=== PATIENT | female | born 1980 | race Caucasian/White ===

== ENCOUNTER → 2017-02-27 | Outpatient (CLI) | payer OTHER ==
--- NOTE | 2017-02-28 09:49 | MM ---
Reason for exam: screening (asymptomatic). Baseline mammogram. Physical Findings: Nurse did not find any significant physical abnormalities on exam. MG Screening Mammo w CAD Bilateral CC and MLO view(s) were taken. The breast tissue is heterogeneously dense. This may lower the sensitivity of mammography. There is no discrete abnormality. These results were verbally communicated with the patient and result sheet given to the patient on 02/27/17. ASSESSMENT: Negative, BI-RAD 1 RECOMMENDATION: Routine screening mammogram of both breasts at age 38.
== END | disposition home or self-care (01) ==
LOC: RADMAMWWP 15:16
PROVIDERS: ATTEND Family Medicine
DX: Z12.31 Encounter for screening mammogram for malignant neoplasm of breast (principal)

== ENCOUNTER → 2019-09-16 | Outpatient (CLI) | payer BC, OTHER ==
--- NOTE | 2019-09-18 13:18 | MM ---
Reason for exam: screening (asymptomatic). Last mammogram was performed 2 years and 7 months ago. Physical Findings: A clinical breast exam by your physician is recommended on an annual basis and results should be correlated with mammographic findings. MG Screening Mammo w CAD Bilateral CC and MLO view(s) were taken. Prior study comparison: February 27, 2017, bilateral MG screening mammo w CAD. The breast tissue is heterogeneously dense. This may lower the sensitivity of mammography. No significant changes when compared with prior studies. ASSESSMENT: Negative, BI-RAD 1 RECOMMENDATION: Routine screening mammogram of both breasts in 1 year.
== END | disposition home or self-care (01) ==
LOC: RADMAMWWP 15:25
PROVIDERS: ATTEND Family Medicine
DX: Z12.31 Encounter for screening mammogram for malignant neoplasm of breast (principal)
CPT/HCPCS: 77067

== ENCOUNTER → 2019-09-22 | Outpatient (CLI) | payer BC, OTHER ==
--- NOTE | 2019-09-22 14:21 | CT ---
EXAMINATION TYPE: CT abdomen pelvis w con DATE OF EXAM: 09/22/2019 HISTORY: Left lower quadrant abdominal pain, pelvic pain and constipation. CT DLP: 850.6mGycm Automated Exposure Control for Dose Reduction was Utilized. CONTRAST: CT scan of the abdomen and pelvis is performed with IV Contrast, patient injected with 100ml mL of Is ovue 300. COMPARISON: None. FINDINGS: LUNG BASES: No significant abnormality is appreciated. LIVER/GB: There is focal hypoattenuation near the fissure for the falciform ligament, a typical locat ion for focal fatty infiltration. No intrahepatic biliary ductal dilatation or cholelithiasis. Questi onable very trace pericholecystic fluid on series 7 image 32. This also could represent fat situated between the gallbladder and liver. PANCREAS: No significant abnormality is seen. No main pancreatic ductal dilatation. SPLEEN: Small splenule anterior to the [place] spleen. ADRENALS: No significant abnormality is seen. KIDNEYS: No significant abnormality is seen. No hydronephrosis. BOWEL: There are a few small diverticula are seen of the sigmoid colon without pericolonic fat strand ing. No dilated large or small bowel. Oral contrast does not progress into the colon, limiting evalua tion of the colon. The appendix is air-filled, low-lying within the central pelvis and retrocecal see n just above the urinary bladder. UTERUS/ADNEXA: Follicular and/or cystic changes of the left ovary measuring 2.0 cm. Further evaluatio n with pelvic ultrasound is recommended in this patient with left-sided abdominal pain. LYMPH NODES: No greater than 1cm abdominal or pelvic lymph nodes are appreciated. OSSEOUS STRUCTURES: Minimal multilevel degenerative disc disease. IMPRESSION: 1. Follicular and/or cystic change of the left ovary. In this patient with left lower quadrant pain p elvic ultrasound is recommended for further evaluation. 2. Trace pericholecystic fluid is questioned. Gallbladder ultrasound is recommended. 3. There a few small sigmoid diverticula without evidence of acute diverticulitis. 4. Incidentally the appendix is low-lying and centrally located in the pelvis just above the urinary bladder. No CT evidence of acute appendicitis.
== END | disposition home or self-care (01) ==
LOC: RADCTMAIN 09-14 11:06
PROVIDERS: ATTEND Internal Medicine Gastroenterology
DX: K57.30 Diverticulosis of large intestine without perforation or abscess without bleeding (principal)
CPT/HCPCS: 74177; Q9967

== ENCOUNTER → 2019-12-04 | Outpatient (CLI) | payer BC, OTHER | END | disposition home or self-care (01) | LOC: LABWHC1 10:39 | PROVIDERS: ATTEND Internal Medicine Gastroenterology | DX: Z11.59 Encounter for screening for other viral diseases (principal) | CPT/HCPCS: 87635 ==

== ENCOUNTER 2019-12-09 07:33 | Day surgery (SDC) | payer BC, OTHER ==
[2019-12-08 09:56] VITALS: BMI 28.3
[2019-12-09] MEDS ORDERED: LACTATED RINGERS 1,000 ML IV SCH (07:41)
[2019-12-09 07:48] VITALS: TEMP 97.5
[2019-12-09] MEDS ORDERED: LACTATED RINGERS 1,000 ML IV ONE (07:48)
[2019-12-09] MEDS ORDERED: LIDOCAINE 1% (10MG/ML) FOR IV START INTRADERMA ONE (07:49)
[2019-12-09] MEDS ORDERED: PROPOFOL 10 MG/ML 20 ML VIAL IV ONE (08:27)
--- NOTE | 2019-12-09 08:41 | P.PCN ---
Date of Procedure: 12/09/19 Procedure(s) Performed: BRIEF HISTORY: Patient is a 39-year-old pleasant female scheduled for an elective colonoscopy as a part of value should of lower abdominal pain and chronic constipation of several months duration. PROCEDURE PERFORMED: Colonoscopy. PREOPERATIVE DIAGNOSIS: Abdominal pain and chronic constipation. IV sedation per Anesthesia. PROCEDURE: After informed consent was obtained, the patient, was brought into the endoscopy unit. IV sedation was administered by Anesthesia under continuous monitoring. Digital rectal examination was normal. Initially the Olympus CF-160 flexible video colonoscope was then inserted in the rectum, gradually advanced into the cecum without any difficulty. Careful examination was performed as the scope was gradually being withdrawn. Ileocecal valve and the appendiceal orifice were visualized and appeared normal. Prep was excellent. Mucosa of the cecum, ascending colon, transverse colon, descending colon, sigmoid colon, and rectum appeared normal. Retroflexion was performed in the rectum and no lesions were seen. The patient tolerated the procedure well. IMPRESSION: Normal-appearing colon from rectum to cecum with no evidence of colorectal neoplasia. RECOMMENDATIONS: Findings of this examination were discussed with the patient as well as a family. She was advised to start fiber supplements a regular basis and osmotic laxatives as needed. She'll be seen in office in 3-4 weeks.
[2019-12-09] MEDS ORDERED: IV FLUID CONTINUATION 1,000 ML IV ONE (08:47)
[2019-12-09 08:50] VITALS: RESP 16
[2019-12-09 09:04] VITALS: BP 136/88; PULSE 97
== END 2019-12-09 09:25 | disposition home or self-care (01) ==
LOC: ORWHC2ENDO 07:33
PROVIDERS: ATTEND Internal Medicine Gastroenterology
DX: K59.09 Other constipation (principal); Z79.899 Other long term (current) drug therapy
CPT/HCPCS: 45378; J2704

== ENCOUNTER → 2020-12-16 | Outpatient (CLI) | payer BC, OTHER ==
--- NOTE | 2020-12-20 09:15 | MM ---
Reason for exam: screening (asymptomatic). Last mammogram was performed 1 year and 3 months ago. Physical Findings: A clinical breast exam by your physician is recommended on an annual basis and results should be correlated with mammographic findings. MG Screening Mammo w CAD Bilateral CC and MLO view(s) were taken. Prior study comparison: September 16, 2019, bilateral MG screening mammo w CAD. February 27, 2017, bilateral MG screening mammo w CAD. The breast tissue is heterogeneously dense. This may lower the sensitivity of mammography. No significant changes when compared with prior studies. ASSESSMENT: Negative, BI-RAD 1 RECOMMENDATION: Routine screening mammogram of both breasts in 1 year. Patient should continue monthly self breast exams. A negative report should not preclude additional follow up of suspicious palpable abnormalities.
== END | disposition home or self-care (01) ==
LOC: RADMAMWWP 15:45
PROVIDERS: ATTEND Family Medicine
DX: Z12.31 Encounter for screening mammogram for malignant neoplasm of breast (principal)
CPT/HCPCS: 77067

== ENCOUNTER → 2022-02-14 | Outpatient (CLI) | payer OTHER ==
--- NOTE | 2022-02-15 18:14 | MM ---
Reason for Exam: Screening (asymptomatic). Last mammogram was performed 1 year(s) and 2 month(s) ago. Patient History: Menarche at age 10. First Full-Term at age 23. Hysterectomy at age 33. Risk Values: Ninfa 5 year model risk: 0.8%. NCI Lifetime model risk: 10.8%. Prior Study Comparison: 02/27/2017 Bilateral Screening Mammogram, [facility]. 09/16/2019 Bilateral Screening Mammogram, [facility]. 12/16/2020 Bilateral Screening Mammogram, [facility]. Tissue Density: There are scattered fibroglandular densities. Findings: Analyzed By CAD. There is no suspicious group of microcalcifications or new suspicious mass in either breast. Overall Assessment: Negative, BI-RAD 1 Management: Screening Mammogram of both breasts in 1 year. 1. Patient should continue monthly self breast exams. 2. A clinical breast exam by your physician is recommended on an annual basis. 3. This exam should not preclude additional follow-up of suspicious palpable abnormalities. Electronically signed and approved by: Vernon Stewart M.D. Radiologist
== END | disposition home or self-care (01) ==
LOC: RADMAMWWP 15:54
PROVIDERS: ATTEND Family Medicine
DX: Z12.31 Encounter for screening mammogram for malignant neoplasm of breast (principal)
CPT/HCPCS: 77067

== ENCOUNTER → 2023-02-15 | Outpatient (CLI) | payer SELFPAY ==
--- NOTE | 2023-02-18 16:08 | MM ---
Reason for Exam: Screening (asymptomatic). Last screening mammogram was performed 12 month(s) ago. Patient History: Menarche at age 10. First Full-Term at age 23. Hysterectomy at age 33. Risk Values: Ninfa 5 year model risk: 0.9%. NCI Lifetime model risk: 10.7%. Prior Study Comparison: 09/16/2019 Bilateral Screening Mammogram, [facility]. 12/16/2020 Bilateral Screening Mammogram, [facility]. 02/14/2022 Bilateral MG screening mammo w CAD, [facility]. Tissue Density: There are scattered fibroglandular densities. Findings: Analyzed By CAD. Pattern appears symmetrical and stable. No significant interval change is evident. No suspicious groups of microcalcifications, spiculated or lobular masses, architectural distortion or other secondary signs of malignancy are mammographically apparent. Overall Assessment: Benign, BI-RAD 2 Management: Screening Mammogram of both breasts in 1 year. A negative mammogram report should not preclude additional follow up of suspicious palpable abnormalities. Patient should continue monthly self breast exam. A clinical breast exam by your physician is recommended on an annual basis and results should be correlated with mammographic findings. Electronically signed and approved by: Bolivar Singh D.O. Radiologis
== END | disposition home or self-care (01) ==
LOC: RADMAMWWP 14:56
PROVIDERS: ATTEND Obstetrics & Gynecology
DX: Z12.31 Encounter for screening mammogram for malignant neoplasm of breast (principal)
CPT/HCPCS: 77067

== ENCOUNTER → 2024-11-03 | Outpatient (CLI) | payer BC ==
--- NOTE | 2024-11-03 10:55 | MM ---
Reason for Exam: Screening (asymptomatic). Last mammogram was performed 1 year(s) and 8 month(s) ago. Patient History: Menarche at age 10. First Full-Term at age 23. Hysterectomy at age 33. Risk Values: Ninfa 5 year model risk: 0.9%. NCI Lifetime model risk: 10.5%. Prior Study Comparison: 12/16/2020 Bilateral Screening Mammogram, [facility]. 02/14/2022 Bilateral MG screening mammo w CAD, [facility]. 02/15/2023 Bilateral MG screening mammo w CAD, [facility]. Tissue Density: The breasts are heterogeneously dense, which may obscure small masses. Findings: Analyzed By CAD. There is no suspicious group of microcalcifications in either breast. There is a new area of asymmetric density upper left MLO view 8 cm from the nipple. Additional views of the left breast are recommended. Overall Assessment: Incomplete: need additional imaging evaluation, BI-RAD 0 Management: Diagnostic Mammogram of the left breast. . Patient should continue monthly self-breast exams. A clinical breast exam by your physician is recommended on an annual basis. This exam should not preclude additional follow-up of suspicious palpable abnormalities. Note on Ninfa scores and lifetime risk: 1. A Ninfa score greater than 3% is considered moderate risk. If this is the case, consider specialist referral to assess eligibility for a risk reducing agent. 2. If overall lifetime risk for the development of breast cancer is 20% or higher, the patient may qualify for future screening with alternating mammogram and breast MRI. [facility], , 11/03/2024 10:51 AM. Electronically signed and approved by: Zack Rodas M.D. Radiologis
== END | disposition home or self-care (01) ==
LOC: RADMAMWWP 09:50
PROVIDERS: ATTEND Family Medicine
DX: Z12.31 Encounter for screening mammogram for malignant neoplasm of breast (principal); R92.333 Mammographic heterogeneous density, bilateral breasts
CPT/HCPCS: 77067

== ENCOUNTER → 2024-11-03 | Outpatient (CLI) | payer BC ==
[2024-11-03 10:33] VITALS: BP 125/84; PULSE 99; RESP 16; TEMP 98.2
--- NOTE | 2024-11-03 11:28 | P.HPOB ---
History of Present Illness H&P Date: 11/03/24 Chief Complaint: The patient is here for her routine gynecologic exam and ma mmogram. This is a 44-year-old -0-1-3 with an LMP of 2010. Patient is here to establish with this office. It has been about 3 or 4 years since her last pelvic exam. She is status post [facility] for benign reasons. She previously saw Dr. Musa for her gynecologic care. She states she was told she has a mild rectal prolapse. She does not feel anything protruding from the vaginal opening, but she states her boyfriend states he can feel it at times with sexual intercourse. She denies any significant hot flashes. She is otherwise without gynecologic complaints. Review of Systems The patient has gained 5 pounds over the last year. She denies respiratory, cardiac, or G.I. problems. Past Medical History Past Medical History: Skin Disorder Additional Past Medical History / Comment(s): Psoriasis, acne, interstitial cystitis, and chronic back problems. PAST TRIGONOMETRY TEACHER HISTORY: She has no history of STDs. History of Any Multi-Drug Resistant Organisms: None Reported Past Surgical History: Section, Hysterectomy Additional Past Surgical History / Comment(s): MUNIR 2010, left partial salpingectomy for an ectopic , 2 sections, abdominoplasty, varicose vein surgery, wisdom teeth removed. Colonoscopy 2019. Smoking Status: Never smoker Past Alcohol Use History: Rare (1 drink per year.) Past Drug Use History: None Reported Additional History: She is and has been with her boyfriend since 2015. They live together. She works in production at a factory. - Past Family History Mother Family Medical History: COPD, Diabetes Mellitus Additional Family Medical History / Comment(s): . Father Family Medical History: Congestive Heart Failure (CHF), Hypertension Additional Family Medical History / Comment(s): . Brother(s) Family Medical History: Diabetes Mellitus Medications and Allergies Home Medications Medication Instructions Recorded Confirmed Type Spironolactone 50 mg PO BID 12/08/19 11/03/24 History Cholecalciferol (Vitamin D3) 50 mcg PO DAILY 11/03/24 11/03/24 History [Vitamin D3 (50 Mcg = 2000 Iu)] Glycopyrrolate 1 mg PO BID 11/03/24 11/03/24 History Allergies Allergy/AdvReac Type Severity Reaction Status Date / Time No Known Allergies Allergy Verified 11/03/24 10:21 Exam Vital Signs Temp Pulse Resp BP Pulse Ox 11/03/24 10:26 98.2 F 99 16 125/84 94 L Intake and Output 11/02/24 11/03/24 11/03/24 22:59 06:59 14:59 Other: Weight 87.543 kg Height 5 feet 2 inches, weight 193 pounds, BMI 35.3. This is a well-developed well-nourished white female who is alert and oriented times 3 in no acute distress. HEENT: Within normal limits. NECK: Supple without mass or thyromegaly. CHEST AND LUNGS: Clear to auscultation. HEART: Mild tachycardia with regular rhythm. BREASTS: Are without mass or discharge. AXILLARY EXAM: Negative for adenopathy. BACK: Negative for CVA tenderness. ABDOMEN: Soft, nontender, without palpable masses. PELVIC EXAM: Normal external genitalia.Vagina appear normal . There is no unusual discharge. There is a grade 1-2 rectocele and otherwise no evidence of prolapse. The vaginal cuff is well supported. There are no palpable adnexal masses or tenderness. RECTAL EXAM: Rectovaginal exam is negative for mass or tenderness and is negative for occult blood. The rectal exam does confirm a small rectocele. EXTREMITIES: Nontender. IMPRESSION: 1. 44-year-old female status post MUNIR for benign reasons with a small minimally symptomatic grade 1-2 rectocele. PLAN: 1. Pap smears have been discontinued. 2. Self breast awareness was discussed with the patient. We have also discussed symptoms associated with inflammatory breast cancer. 3. Screening mammogram was done today. 4. Osteoporosis prevention was discussed. I have stressed the importance of adequate calcium, vitamin D and regular exercise. Recommended amounts of calcium and vitamin D were also discussed. 5. We have discussed the small rectocele. We will continue with conservative management. I have recommended that she avoid holding stool longer than necessary. Suggestions on having her partner redirect upon initial penetration. She states she has adequate lubrication. She was instructed to call if she is having any problems related to the rectocele. 6. She is scheduled for colonoscopy next week. 7. She was advised to return in one year for her annual well woman exam and as needed.
== END ==
LOC: WWCWWP 09:48
PROVIDERS: ATTEND Obstetrics & Gynecology
DX: Z01.419 Encounter for gynecological examination (general) (routine) without abnormal findings (principal); Z12.31 Encounter for screening mammogram for malignant neoplasm of breast; K62.3 Rectal prolapse; Z90.710 Acquired absence of both cervix and uterus

== ENCOUNTER → 2024-11-05 | Outpatient (CLI) | payer BC ==
--- NOTE | 2024-11-05 08:18 | MM ---
Reason for Exam: Additional evaluation requested from abnormal screening. Last screening mammogram was performed less than 1 month ago. Patient History: Menarche at age 10. First Full-Term at age 23. Hysterectomy at age 33. Risk Values: Ninfa 5 year model risk: 0.9%. NCI Lifetime model risk: 10.5%. Prior Study Comparison: 02/14/2022 Bilateral MG screening mammo w CAD, [facility]. 02/15/2023 Bilateral MG screening mammo w CAD, [facility]. 11/03/2024 Bilateral MG screening mammo w CAD, [facility]. Tissue Density: Left: The breasts are heterogeneously dense, which may obscure small masses. Findings: Analyzed By CAD. Persistent asymmetric density upper left breast 9 cm from the nipple. Ultrasound of the upper half of the left breast is recommended. Overall Assessment: Incomplete: need additional imaging evaluation, BI-RAD 0 Management: Diagnostic Breast Ultrasound of the left breast. . Results were given to the patient verbally at the time of exam. Patient should continue monthly self-breast exams. A clinical breast exam by your physician is recommended on an annual basis. This exam should not preclude additional follow-up of suspicious palpable abnormalities. Note on Ninfa scores and lifetime risk: 1. A Ninfa score greater than 3% is considered moderate risk. If this is the case, consider specialist referral to assess eligibility for a risk reducing agent. 2. If overall lifetime risk for the development of breast cancer is 20% or higher, the patient may qualify for future screening with alternating mammogram and breast MRI. [facility], , 11/05/2024 8:16 AM. Electronically signed and approved by: Zack Rodas M.D. Radiologis
--- NOTE | 2024-11-05 08:45 | USB ---
Reason for Exam: Additional evaluation requested from abnormal screening. Patient History: Menarche at age 10. First Full-Term at age 23. Hysterectomy at age 33. Risk Values: Ninfa 5 year model risk: 0.9%. NCI Lifetime model risk: 10.5%. Technique: Method: Targeted. Doppler: Color. Patient Position: RPO. Prior Study Comparison: 02/14/2022 Bilateral MG screening mammo w CAD, [facility]. 02/15/2023 Bilateral MG screening mammo w CAD, [facility]. 11/03/2024 Bilateral MG screening mammo w CAD, [facility]. Findings: The upper section of the breast of the left breast, the axilla of the left breast and the retroareolar of the left breast were scanned. No solid or cystic masses are identified. Dense glandular tissue noted. Impression a six-month follow-up mammography advised. Overall Assessment: Probably benign, BI-RAD 3 Management: Diagnostic Mammogram of the left breast in 6 months. A clinical breast exam by your physician is recommended on an annual basis and results should be correlated with mammographic findings. This exam should not preclude additional follow-up of suspicious palpable abnormalities. Results were given to the patient verbally at the time of exam. [facility], , 11/05/2024 8:35 AM. Electronically signed and approved by: Zack Rodas M.D. Radiologis
== END | disposition home or self-care (01) ==
LOC: RADMAMWWP 07:57
PROVIDERS: ATTEND Family Medicine
DX: R92.8 Other abnormal and inconclusive findings on diagnostic imaging of breast (principal); R92.332 Mammographic heterogeneous density, left breast
CPT/HCPCS: 77061; 77065